=== PATIENT | born 1990 | race Caucasian/White ===

== ENCOUNTER 2023-07-18 14:59 | Emergency (ER) | payer MEDICAID, SELFPAY ==
[2023-07-18 15:04] VITALS: BP 160/90; PULSE 116; O2SAT 99
[2023-07-18 15:13] VITALS: BP 134/83; PULSE 102; RESP 16; TEMP 36.5; O2SAT 100; BMI 23.1
[2023-07-18 15:34] LABS: Appearance Urine Clear; Color Urine Yellow; Glucose Urine UA 100 mg/dL (Negative); Leukocyte Esterase Urine Negative (Negative); Nitrite Urine Negative (Negative); PH 6.5 (5.0-9.0); Specific Gravity - Urine <= 1.005 (1.005-1.025); Urine Blood Negative (Negative); Urine Ketones Negative (Negative); Urine Protein Negative (Neg-Trace)
[2023-07-18 15:51] LABS: Amphetamine Screen Urine Not Detected; Barbiturates, Urine POSITIVE; Benzodiazepines Screen Urine Not Detected; Buprenorphine Scr Not Detected; Cannabinoid Screen Urine POSITIVE; Cocaine Screen Urine Not Detected; Fentanyl, urine POSITIVE; Methadone Screen, Urine Not Detected; Opiate Screen Urine Not Detected; Oxycodone Screen Urine Not Detected; Phencyclidine Screen Urine Not Detected
--- NOTE | 2023-07-18 18:19 | ED.GENADULT ---
HPI - General Adult General Chief complaint: ETOH/Substance Use Stated complaint: OD PER EMS Time Seen by Provider: 07/18/23 15:32 Source: patient Mode of arrival: ambulatory Limitations: no limitations History of Present Illness HPI narrative: 32-year-old male with past medical history of substance abuse presents to ED for accidental overdose. Patient states he snorted heroin 1 bag and overdose. Patient was given 8 g of Narcan. Patient states no other complaints. Patient states overdose was accidental. Patient denies any suicidal or homicidal ideation. Patient does not want detox. Patient states he has been clean for years in just relapsed today. Related Data Allergies Allergy/AdvReac Type Severity Reaction Status Date / Time No Known Allergies Allergy Verified 07/18/23 15:15 Review of Systems Review of Systems: Accidental overdose Yes all other systems are reviewed and are negative [facility] Social History Social History Advance Directives: No Advance Directives Information Provided: No Do you have a plan to hurt others: No Plan Physical Exam ED Vital Signs: Vital Signs - 24 hr 07/18/23 19:06 Temperature 98.2 F Pulse Rate 72 Respiratory Rate 16 Blood Pressure 127/72 Pulse Oximetry 100 Oxygen Delivery Method Room Air BMI result Body Mass Index 23.1 Const General: cooperative, healthy appearing, comfortable, no acute distress, well developed, alert and awake Orientation/consciousness: oriented to person, oriented to place, oriented to time and patient oriented x3 HENMT Head: Yes normal to inspection, Yes No palpable skull fracture present, Yes normocephalic and Yes atraumatic Ears: hearing grossly normal bilaterally, external ears normal, TM's normal bilaterally, TM normal on the right, TM normal on the left, EAC's normal, mastoids normal and no periauricular adenopathy Throat: Yes posterior oropharynx normal, Yes tonsils normal and Yes uvula midline Eyes General: appearance normal, both eyes and all related structures Neck Neck: Yes normal visual inspection, Yes full ROM, Yes no lymphadenopathy, Yes no meningeal signs, Yes trachea midline, Yes supple, No anterior neck swelling and No tender Chest Chest palpation & inspection: normal inspection of the chest and normal palpation of entire chest wall Resp Effort & Inspection: normal respiratory effort and able to speak in complete sentences Auscultation: clear to auscultation bilaterally Cardio Jugular venous distension: no JVD Heart sounds: S1 normal heart sound present and S2 normal heart sound present GI Inspection: Yes normal to inspection Palpation (GI): Soft to palpation, not firm, nontender, no guarding and not rigid General: No CVA tenderness and Yes no CVA tenderness Back/Spine/Pelvis Back: no CVA tenderness, No CVA tenderness and No back tenderness Skin General skin exam: no rashes or lesions noted, elasticity normal and turgor normal Neuro General: oriented to person, oriented to place, oriented to time, patient oriented x3, gait normal, tone normal, moves all extremities, Normal light touch and pain sensation, no meningeal signs, no focal motor deficits, CN's II-XI intact bilaterally and normal sensation to monofilament Extrem General: Yes normal to inspection, Yes full ROM and Yes capillary refill normal Psych Appearance: grossly normal, well kempt and not disheveled Medications Administered Discontinued Medications Generic Name Dose Route Start Last Admin Trade Name Freq PRN Reason Stop Dose Admin Naloxone HCl 8 mg 07/18/23 18:23 07/18/23 19:06 Naloxone Hcl Nasal Take Home 4 Mg [place] NOSTRILALT 07/18/23 18:24 Not Given ONCE ONE Medical Decision Making Medical Decision Making [facility] Narrative: 32-year-old male presents to ED for accidental overdose after snorting heroin. Patient denies any suicidal or homicidal ideation. Patient evaluated in the ED for 3 hours with vital stable. patient does not want care team evaluation or KRYSTAL evaluation. Patient does not want detox. Whole-body evaluated negative for signs of trauma. Patient is safe for discharge Differential Diagnosis Differential Diagnoses: The differential diagnosis associated with the presentation includes (Overdose, substance abuse,) Admission/Observation Consideration of admission/observation: Escalation of care including admission/observation considered Lab Data [facility] Lab Attestation statement: I reviewed the patient's lab results. Labs: Lab Results 07/18/23 Range/Units 15:23 Urine Color Yellow Urine Appearance Clear Urine pH 6.5 (5.0-9.0) Ur Specific [place] <= 1.005 (1.005-1.025) Urine Protein Negative (Neg-Trace) mg/dL Urine Glucose (UA) 100 H (Negative) mg/dL Urine Ketones Negative (Negative) mg/dL Urine Blood Negative (Negative) Urine Nitrite Negative (Negative) Ur Leukocyte Esterase Negative (Negative) Urine Opiates Screen Not Detected Ur Buprenorphine Scrn Not Detected ng/mL Ur Oxycodone Screen Not Detected ng/mL Urine Methadone Screen Not Detected ng/mL Urine Fentanyl Screen POSITIVE Ur Barbiturates Screen POSITIVE Ur Phencyclidine Scrn Not Detected Ur Amphetamines Screen Not Detected U Benzodiazepines Scrn Not Detected Urine Cocaine Screen Not Detected U Marijuana (THC) Screen POSITIVE Independent Historian Clinical information obtained from an independent historian. History obtained from or confirmed by: Other (Patient) External Record Review External record reviewed: Other (Prior visit) Prescription Management I considered prescription management with: Other (Narcan) Discharge Plan Discharge Clinical Impression: Polysubstance abuse Patient Disposition: Home, Self-Care Instructions: Polysubstance Abuse (ED) Additional Instructions: Recommend follow-up with your primary care provider. Return to the ED immediately for any suicidal/homicidal ideation, any physical complaints, or any other concerning symptoms. Interventions: ED Discharge Assessment Last Done: 07/18/23 19:06 Discharge Date/Time: 07/18/23 19:05 Print Language: Georgian
--- NOTE | 2023-07-18 18:27 | MHC.EDTECH ---
Dinner tray given
[2023-07-18 19:06] VITALS: BP 127/72; PULSE 72; RESP 16; TEMP 36.8; O2SAT 100
== END 2023-07-18 19:05 | disposition home or self-care (01) ==
PROVIDERS: Emergency Medicine; Emergency Provider Emergency Medicine Emergency Medical Services
DX: F19.10 Other psychoactive substance abuse, uncomplicated (principal)
CPT/HCPCS: 80307; 81003; 99284